=== PATIENT | female | born 1990 | race Caucasian/White ===

== ENCOUNTER → 2018-06-07 16:00 | Outpatient (CLI) | payer OTHER, SELFPAY ==
[2016-06-14 07:00] VITALS: BMI 35.6
[2018-06-13 18:26] LABS: HPV HC, High Risk Negative (Negative)
[2018-06-13 18:42] LABS: HPV Reflexed? YES, CHARGE PATIENT
--- OUTSIDE RECORDS SUMMARY | 2018-07-24 13:42 | XMS RPT_ITS ---
:1990 Author Organization OHIP Care Team Providers Name Role Phone Usha Law Attending Unavailable Usha Law Referring Unavailable PROBLEMS PROBLEMS DATE TYPE CONDITION / CODE ATTENDING STATUS SOURCE 06/07/2018 Unknown Z12.4 - Usha Law Active Lillian Encounter for Community screening for Hospital malignant Repository neoplasm of cervix / Z12.4(ICD-10) PROCEDURES PROCEDURES No Procedure Records FoundRESULTS RESULTS PAP I-G W/RFX HRHPV Collected: 06/07/2018 Status: F Source: LILLIAN 11:30 AM [facility] REPOSITORY Order Comment: CYTOLOGY INFORMATION: - CLINICAL INFORMATION: - DATE LMP/MENOPAUSE: 05/13/18 - COLLECTION VIAL: Thin Prep Vial - SUGAR GRINDER SOURCE: CERVICAL/ENDOCERVICAL - COLLECTION TECHNIQUE: BRUSH/SPATULA Specimen Comment: [id number] Specimen Comment: Source.............Cervix;Endocervix Specimen Comment: No. of containers..01 ThinPrep Vial TYPE CODE TESTS RESULT OUT OF REFERENCE UNITS RANGE LAB L7400.0800 . High DIAGN Comment Result Comment: EPITHELIAL CELL ABNORMALITY. ATYPICAL SQUAMOUS CELLS OF UNDETERMINED SIGNIFICANCE. FUNGAL ORGANISMS MORPHOLOGICALLY CONSISTENT WITH MOSES SPECIES ARE PRESENT. LAB L7400.0900 . Normal ADEQ Comment Result Comment: Satisfactory for evaluation. Endocervical and/or squamous metaplastic cells (endocervical component) are present. LAB L7400.1400 . Normal PERFORM Comment Result Comment: Jessi Perera Hotel Maintenance Technician LAB L7400.1700 . Normal SIGN Comment Result Comment: Mariajose Christianson MD, Pathologist LAB L7400.1720 . Normal Path prov. Comment ICD9 Result Comment: R87.610, R87.5 LAB L7400.2575 . Normal TEST METHOD Comment Result Comment: This liquid based ThinPrep(R) pap test was screened with the use of an image guided system. LAB L7400.2600 . Normal . COMM LAB L7400.2700 . Normal PAPSMR Comment Result Comment: The Pap smear is a screening test designed to aid in the detection of premalignant and malignant conditions of the uterine cervix. It is not a diagnostic procedure and should not be used as the sole means of detecting cervical cancer. Both false-positive and false-negative reports do occur. LAB L7400.2800 . Normal HPV RFLX Comment Result Comment: See below for HPV testing results. LAB L7400.2900 Negative Normal HPV Negative HC,HGH RISK Result Comment: This high-risk HPV test detects thirteen high-risk types (16/18/31/33/35/39/45/51/52/56/58/59/68) without differentiation. Performed at: [facility] [id number] Exchange Underwriting Consultant: Daniella Buchanan MD, Phone: [phone] Performed at: =[facility] [id number] Exchange Underwriting Consultant: Daniella Buchanan MD, Phone: [phone] Performed By: #### L7400.0350 #### [facility] (refer to report for specific site) refer to report for address and phone number ALLERGIES ALLERGIES DATE TYPE / CODE NAME / CODE REACTION SEVERITY SOURCE 06/14/2016 Drug tetracycline Other Unknown [facility] Allergy/4160 /[id number]( [facility] [address](SNOMED RXNORM) Repository CT) ENCOUNTERS ENCOUNTERS ADMIT/DISCHARGE ACCOUNT ADMITTING ENCOUNTER LOCATION SOURCE NUMBER CLASS 06/07/2018 [id number] Ambulatory Blanca Blanca 3 [facility] ing:LABSPEC Repository PAYERS PAYERS ENCOUNTER GUARANTOR PAYER SUBSCRIBER SOURCE 06/07/2018 JONE Primary SEVERINO Blanca [id number] Insurance:MEDICAL HENSELDOB: [facility] [id number]: Repository [id number]: [phone] [phone] () Date:1083-20-40VM [address] [place] [address] [place] [id number]: 06/07/2018 Secondary NOT GIVENUNK Lillian Insurance:SELF PAY [facility] Number: Effective Repository Date:2018-06-07
== END ==
PROVIDERS: Referring Provider Obstetrics & Gynecology; Visit Provider Obstetrics & Gynecology
DX: Z12.4 Encounter for screening for malignant neoplasm of cervix (principal)
CPT/HCPCS: 87624; 88175; G0145

== ENCOUNTER → 2019-01-22 | Outpatient (CLI) | payer OTHER, SELFPAY ==
[2019-01-22 19:34] LABS: Chlamydia Trachomatis by PCR Negative (Negative); Neisserai gonorrhoeae by PCR Negative (Negative); Probe Check PASS; Sample Adequacy Control PASS; Specimen Processing Control PASS
== END | disposition home or self-care (01) ==
PROVIDERS: Referring Provider Obstetrics & Gynecology; Visit Provider Obstetrics & Gynecology
DX: Z34.81 Encounter for supervision of other normal pregnancy, first trimester (principal)
CPT/HCPCS: 87491; 87591

== ENCOUNTER → 2019-02-01 13:40 | Outpatient (CLI) | payer OTHER, SELFPAY ==
[2019-02-01 14:14] LABS: Absolute Neutrophil Count 9.6 X10^3/uL (2.0-7.7); Basophil# 0.05 X10^3/uL; Basophil% 0.4 % (0-1); Eosinophils% 1.7 % (0-5); Hematocrit 40.6 % (37-47); Hemoglobin 13.5 g/dL (12.0-15.0); Lymphocyte % 7.8 % (19-41); Mean Corp Hgb Conc 33.3 g/dL (32-36); Mean Corpuscular Hgb 31.5 pg (27.0-32.0); Mean Corpuscular Volume 94.9 fL (81-99); Mean Platelet Vol. 11.9 fl (6.2-12.0); Monocyte% 6.1 % (0-10); NRBC Flagged by Analyzer 0 % (0-5); Neutrophil # 9.63 X10^3/uL (2.7-7.7); Neutrophil % 83.7 % (47-70); Platelet Count 226 K/mm3 (150-450); RBC Distribution Width CV 11.9 % (11.6-14.6); RBC Distribution Width SD 41.6 fl (35.1-43.9); Red Blood Count 4.28 M/mm3 (4.2-5.4); White Blood Count 11.5 K/mm3 (4.4-11.0)
[2019-02-01 14:17] LABS: Color, Urine Yellow (Yellow); Glucose, Dipstick Normal (Normal); Ketone-Dipstick Negative (Negative); Leukocyte Esterase-Dipstick 500 /ul (Negative); Nitrite-Dipstick Negative (Negative); Occult Blood-Urine Negative /ul (Negative); Protein-Dipstick 15 mg/dl (Negative); Urine Bilirubin Dipstick Negative (Negative); Urine Clarity Cloudy (Clear); Urine Urobilinogen Normal (Normal)
[2019-02-01 14:24] LABS: Amphetamine Urine VISTA NEGATIVE (<1000 ng/mL); Barbiturate Urine VISTA NEGATIVE (< 200 ng/mL); Benzodiazepine Urine VISTA NEGATIVE (< 200 ng/mL); Cocaine Urine VISTA NEGATIVE (< 300 ng/mL); Ecstacy Urine VISTA NEGATIVE (< 500 ng/mL); Methadone Urine VISTA NEGATIVE (< 300 ng/mL); PCP Urine VISTA NEGATIVE (< 25 ng/mL); THC Urine VISTA NEGATIVE (< 50 ng/mL); Vista UDS pH Range 6
[2019-02-01 14:32] LABS: Thyroid Stim Hormone (TSH) 0.95 uIU/mL (0.358-3.74)
[2019-02-04 11:07] LABS: HIV - WCH Non-Reactive (Nonreactive); Hepatitis B Surface Antigen Non-Reactive (Nonreactive); Hepatitis C Antibody Non-Reactive (Nonreactive)
[2019-02-08 01:38] LABS: Prenatal RPR NONREACTIVE (NONREACTIVE)
== END ==
LOC: LABSPEC 13:52
PROVIDERS: Visit Provider Obstetrics & Gynecology
DX: Z34.81 Encounter for supervision of other normal pregnancy, first trimester (principal)
CPT/HCPCS: 80307; 81002; 84443; 85025; 86703; 86762; 86803; 87340

== ENCOUNTER → 2019-05-30 10:20 | Outpatient (CLI) | payer OTHER, SELFPAY ==
[2016-06-14 07:00] VITALS: BMI 35.6
[2019-05-30 11:03] LABS: Hematocrit 37.1 % (37-47); Hemoglobin 12.5 g/dL (12.0-15.0); Mean Corp Hgb Conc 33.7 g/dL (32-36); Mean Corpuscular Hgb 31.5 pg (27.0-32.0); Mean Corpuscular Volume 93.5 fL (81-99); Mean Platelet Vol. 11.3 fl (6.2-12.0); Platelet Count 233 K/mm3 (150-450); RBC Distribution Width SD 41.2 fl (35.1-43.9); Red Blood Count 3.97 M/mm3 (4.2-5.4); White Blood Count 11.7 K/mm3 (4.4-11.0)
[2019-05-30 11:12] LABS: Glucose Challenge Gest 1H 50g 100 mg/dL (70-140)
== END ==
PROVIDERS: Visit Provider Obstetrics & Gynecology
DX: Z34.82 Encounter for supervision of other normal pregnancy, second trimester (principal)
CPT/HCPCS: 36415; 82950; 85027

== ENCOUNTER → 2019-07-09 11:28 | Outpatient (CLI) | payer OTHER, SELFPAY ==
[2019-07-09 12:20] LABS: Hematocrit 35.4 % (37-47); Hemoglobin 11.7 g/dL (12.0-15.0); Mean Corp Hgb Conc 33.1 g/dL (32-36); Mean Corpuscular Hgb 29.9 pg (27.0-32.0); Mean Corpuscular Volume 90.5 fL (81-99); Mean Platelet Vol. 11.6 fl (6.2-12.0); Platelet Count 217 K/mm3 (150-450); RBC Distribution Width CV 12.4 % (11.6-14.6); RBC Distribution Width SD 40.3 fl (35.1-43.9); Red Blood Count 3.91 M/mm3 (4.2-5.4); White Blood Count 11.3 K/mm3 (4.4-11.0)
[2019-07-09 12:25] LABS: Prothrombin Time (Protime)PT. 12.6 SECONDS (11.7-14.9)
[2019-07-09 12:26] LABS: Partial Thromboplast Time 30.8 Seconds (24.1-36.2)
[2019-07-09 12:38] LABS: AST(SGOT) 11 U/L (15-37); Alanine Aminotransfer ALT/SGPT 13 U/L (13-56); Creatinine, Serum 0.56 mg/dL (0.55-1.02); EST Glomerular Filtration Rate 137 mL/min (>60); Est Glom Filt Rate - Afr Amer 166 mL/min (>60); Uric Acid 3.7 mg/dL (2.6-6.0)
== END ==
PROVIDERS: Visit Provider Advanced Practice Midwife
DX: O13.3 Gestational [pregnancy-induced] hypertension without significant proteinuria, third trimester (principal); O10.413 Pre-existing secondary hypertension complicating pregnancy, third trimester
CPT/HCPCS: 36415; 82565; 84450; 84460; 84550; 85027; 85610; 85730

== ENCOUNTER → 2019-07-10 13:39 | Outpatient (CLI) | payer OTHER, SELFPAY ==
[2016-06-14 07:00] VITALS: BMI 35.6
[2019-07-10 14:20] LABS: 24 Hour Urine Protein 306.6 mg/24HR (<150 MG/24HR); 24HR. UA Prot. Total Volume 1825 mL; Urine Protein (24 Hour) 16.8 mg/dL (<11.9)
== END ==
PROVIDERS: Visit Provider Advanced Practice Midwife
DX: O13.3 Gestational [pregnancy-induced] hypertension without significant proteinuria, third trimester (principal); O10.413 Pre-existing secondary hypertension complicating pregnancy, third trimester; Z3A.00 Weeks of gestation of pregnancy not specified
CPT/HCPCS: 81050; 84156

== ENCOUNTER 2019-07-14 08:40 | Outpatient (CLI) | payer OTHER, SELFPAY ==
[2019-07-14 09:24] VITALS: BMI 40.4
[2019-07-14 09:40] VITALS: BP 130/89; PULSE 90; RESP 18; TEMP 36.7; O2SAT 98
--- NOTE | 2019-07-14 13:14 | OB.TRI.HP_ITS ---
- Problem List (1) Decreased movement Status: Acute Qualifiers: Fetus number: single or unspecified fetus Trimester: third trimester Qualified Code(s): O36.8130 - Decreased movements, third trimester, not applicable or unspecified History of Present Illness Date of Service: 07/14/19 Was patient seen by the physician?: Yes Reason For Visit: DECREASED MOVEMENT Date of Service: 07/14/19 Final JENNIFER: 08/28/19 Final JENNIFER Source: US <20 weeks Gestational age: 33 Weeks and 4 Days History of Present Illness: Called in reporting decreased movement after midnight last night. Rested all night, tried to push on belly, increased fluids etc. Was able to get a couple of movements, but not anything near his normal. Sent in to triage for NST. Allergies tetracycline Adverse Reaction (Verified 07/14/19 09:48) Rash Review of Systems Constitutional: Denies: Chills, Fever, Weight Change HEENT: Denies: Head Aches, Sinus Congestion, Sinus Drainage Cardiovascular: Denies: Chest Pain, Palpitations Respiratory: Denies: Cough, Shortness of breath at rest, Sputum production Gastrointestinal: Denies: Abdominal Pain, Nausea, Vomiting Genitourinary: Denies: Dysuria Musculoskeletal: Denies: Joint Pain, Joint Tenderness Skin: Denies: Rash, Wounds Neurological: Denies: Numbness, Tingling, Focal weakness Psychiatric: Denies: Anxiety, Depression, Homicidal Ideations, Suicidal Ideations Hematologic/ Lymphatic: Denies: Easy Bruising, Easy Bleeding Physical Exam Vitals: Vital Signs Temp Pulse Resp BP Pulse Ox 98.1 F 90 18 130/89 H 98 07/14/19 09:40 07/14/19 09:40 07/14/19 09:40 07/14/19 09:40 07/14/19 09:40 General: Alert, Oriented x3, No apparent distress HEENT: Atraumatic, Normocephalic. Negative for: Thyromegaly, Lymphadenopathy Cardiovascular: Regular rate, Regular Rhythm Lungs: Clear to auscultation Abdomen: Bowel Sounds Present, Gravid Neurological: Deep Tendon Reflexes 2+/4 and Symmetrical, Neuro grossly intact DIEING OUT MACHINE OPERATOR: Normal external genitalia. Negative for: Vulvar lesions NST - FHR Rate Baby A Baseline: 130 Variability:: Moderate Accelerations:: 15 x 15 Decelerations:: None NST Reactive:: Yes FHR Category:: Category I Uterine Activity:: quiet Impression/Plan A: at 33 weeks gestation here with decreased movement NST Basleine 125-130, + accels 15x15, - decels, moderate variability, reactive Category I movement felt and heard P: Encouraged to go home and rest Educated on kick counts If decreased movements happen again to call in. If happening frequently is agreeable to beginning biweekly NSTs in the offive Discharge home
== END 2019-07-14 09:30 | disposition home or self-care (01) ==
LOC: WPOUT 09:25 → OBT 09:27
PROVIDERS: Visit Provider Obstetrics & Gynecology
DX: O36.8130 Decreased fetal movements, third trimester, not applicable or unspecified (principal); Z3A.33 33 weeks gestation of pregnancy
CPT/HCPCS: 59025; 59050; 99218; G0378

== ENCOUNTER → 2019-08-02 10:03 | Outpatient (CLI) | payer OTHER, SELFPAY ==
[2019-07-14 09:24] VITALS: BMI 40.4
[2019-08-02 11:14] LABS: Hematocrit 36.9 % (37-47); Hemoglobin 12.2 g/dL (12.0-15.0); Mean Corp Hgb Conc 33.1 g/dL (32-36); Mean Corpuscular Hgb 29.7 pg (27.0-32.0); Mean Corpuscular Volume 89.8 fL (81-99); Mean Platelet Vol. 11.9 fl (6.2-12.0); Platelet Count 210 K/mm3 (150-450); RBC Distribution Width CV 13.2 % (11.6-14.6); RBC Distribution Width SD 42.9 fl (35.1-43.9); Red Blood Count 4.11 M/mm3 (4.2-5.4); White Blood Count 11.3 K/mm3 (4.4-11.0)
[2019-08-02 11:33] LABS: International Normalized Ratio 0.9; Prothrombin Time (Protime)PT. 12.3 SECONDS (11.7-14.9)
[2019-08-02 11:37] LABS: AST(SGOT) 17 U/L (15-37); Alanine Aminotransfer ALT/SGPT 19 U/L (13-56); Creatinine, Serum 0.64 mg/dL (0.55-1.02); EST Glomerular Filtration Rate 117 mL/min (>60); Est Glom Filt Rate - Afr Amer 142 mL/min (>60); Uric Acid 4.6 mg/dL (2.6-6.0)
[2019-08-03 17:23] LABS: 24 Hour Urine Protein 178.6 mg/24HR (<150 MG/24HR); 24HR. UA Prot. Total Volume 770 mL; Urine Protein (24 Hour) 23.2 mg/dL (<11.9)
== END ==
PROVIDERS: Visit Provider Advanced Practice Midwife
DX: O13.9 Gestational [pregnancy-induced] hypertension without significant proteinuria, unspecified trimester (principal)
CPT/HCPCS: 36415; 81050; 82565; 84156; 84450; 84460; 84550; 85027; 85610; 85730; 87077; 87081; 87186

== ENCOUNTER 2019-08-02 22:38 | Outpatient (CLI) | payer OTHER, SELFPAY ==
[2019-08-02 23:10] VITALS: BMI 42.5
--- NOTE | 2019-08-03 00:24 | OB.TRI.NOTE ---
History of Present Illness Date of Service: 08/03/19 Was patient seen by the physician?: Yes Reason For Visit: HIGH BLOOD PRESSURE Date of Service: 08/03/19 Final JENNIFER: 08/28/19 Final JENNIFER Source: US <20 weeks Gestational age: 36 Weeks and 3 Days History of Present Illness: 28yo at 36w43d gestation by 10w2d US seen in office today for routine PNV with c/o elevated blood pressures; pressures were mildly elevated, BPP was 8/8 and NST was reactive; labs were WNL w/exception of 24 hour urine which is in progress; she was sent home with recommendations of rest, FM counts, and low stimulation environment, to return in 3 days for NST; this evening she presents to L&D with report of elevated blood pressures at home, the highest of which was 160/109; she denies TEAGUE, visual changes, nausea or epigastric pain; she has a hx of preeclampsia in first and oligohydramnios in second Allergies tetracycline Adverse Reaction (Verified 08/02/19 23:12) Rash Physical Exam General: Alert, Oriented x3, Cooperative, No apparent distress HEENT: PERRLA, EOMI Cardiovascular: Regular rate, Regular Rhythm Lungs: Clear to auscultation, Normal air movement Abdomen: Bowel Sounds Present, Soft, Non Tender, Non-Distended, Passing Flatus, Gravid, Obese Extremities:: No edema Neurological: Cranial nerves II-XII grossly intact, Deep Tendon Reflexes 2+/4 and Symmetrical, Neuro grossly intact Estimated gestational size: Appropriate for gestational size Impression/Plan Impression: 28yo at 36w43d gestation by 10w2d US Elevated blood pressures, asymptomatic Hx of preeclampsia in first , currently on asa Labs WNL Plan: d/w covering collaborative physician Dr. Enio Kumar PC ratio May dc pt home w/rest, FM counts, low stimulation environment if pressures stable and PC ration WNL/reassuring RTO 2 days for NST
[2019-08-03 01:32] LABS: Protein, Urine (Random) 29.7 mg/dL (<11.9); Protein:Creat Ratio 125 mg/g CRE (0-200)
--- NOTE | 2019-08-03 02:25 | OB.TRI.PN ---
Progress Notes Date of Service: 08/03/19 Progress Note: This note is from today at 0130 S: Remains asymptomatic O: AVSS: BPs in 130s/70s-80s FHTs: 130 baseline, mod variability, +accels, no decels UCs: None A: Impression: 28yo at 36w43d gestation by 10w2d US Elevated blood pressures, asymptomatic Hx of preeclampsia in first , currently on asa Labs in office yesterday WNL PC ration today WNL Cat 1 FHTs P: DC home w/rest, FM counts, low stimulation environment Continue 24 hour urine collection RTO 2 days for NST Laboratory Studies: Laboratory Tests 08/03/19 Range/Units 01:05 U Random Total Protein 29.7 H (<11.9) mg/dL Urine Creatinine 237.00 (NO RANGE EST.) mg/dL Protein/Creatinin Ratio 125 (0-200) mg/g CRE
== END 2019-08-03 02:00 | disposition home or self-care (01) ==
LOC: WPOUT 22:47 → WP 22:50
PROVIDERS: Visit Provider Advanced Practice Midwife
DX: O26.893 Other specified pregnancy related conditions, third trimester (principal); R03.0 Elevated blood-pressure reading, without diagnosis of hypertension; Z3A.36 36 weeks gestation of pregnancy
CPT/HCPCS: 59025; 59050; 82570; 84156; 99218; G0378

== ENCOUNTER 2019-08-21 20:53 | Inpatient (IN) | payer OTHER, SELFPAY ==
[2019-08-21 21:18] VITALS: BP 157/96; PULSE 94; O2SAT 97
--- NOTE | 2019-08-21 21:27 | HP.PCM_ITS ---
- Problem List (1) 39 weeks gestation of Status: Acute (2) Hypertension affecting in third trimester Status: Acute History Date of Admission: 08/21/19 Final JENNIFRE: 08/28/19 Final JENNIFER Source: US <20 weeks Gestational age: 39 Weeks and 1 Days History of this : This is a 28 year-old, G [3], P [2], at 39 weeks gestational age. Here for medical induction with gestational hypertension. Allergies tetracycline Adverse Reaction (Verified 08/02/19 23:12) Rash Home Medications: Home Medications Aspirin [Aspirin, Baby] 81 mg PO DAILY@0800 06/14/16 Vit No.130/Iron/Folic [ Tablet] 1 tablet PO DAILY 06/14/16 Valacyclovir HCl [Valtrex] 1,000 mg PO DAILY 06/14/16 Smoking Status: Never smoker Alcohol: None Number of Fetus(es): 1 NST - FHR Rate Baby A Baseline: 170 Variability:: Moderate Accelerations:: 15 x 15 Decelerations:: None NST Reactive:: Yes FHR Category:: Category II Uterine Activity:: quiet History Past Pregnancies: Past Pregnancies Delivery Date Name GA/ Weeks Outcome Route Wt Infant Sex Labor Length Anesthesia Delivery Location Provider FOB 10-02-12 37 viable vag 6.9 male 18H epidural 06-14-16 41 viable vag 7.0 female 8H epidural Labs: Mom's Problem List Problem Status Onset Code 39 weeks gestation of Acute Z3A.39 Hypertension affecting in third trimester Acute O16.3 Mom's Labs & Results 08/21/19 08/21/19 08/21/19 22:20 22:20 22:20 WBC 11.4 H RBC 3.84 L Hgb 11.4 L Hct 34.7 L MCV 90.4 MCH 29.7 MCHC 32.9 RDW Std Deviation 43.9 RDW Coeff of Olvin 13.5 Plt Count 188 MPV 12.1 H Immature Gran % (Auto) 1.600 H Neut % (Auto) 74.8 H Lymph % (Auto) 11.0 L Collingsworth % (Auto) 11.1 H Eos % (Auto) 1.1 Baso % (Auto) 0.4 Absolute Neuts (auto) 8.5 H Absolute Lymphs (auto) 1.25 Nucleated RBC % 0 PT 12.4 INR 1.0 APTT 28.4 Creatinine Estim Creat Clear Calc Est GFR (MDRD) Af Amer Est GFR (MDRD) Non-Af Uric Acid AST ALT U Random Total Protein Urine Creatinine Protein/Creatinin Ratio Blood Type O POSITIVE Antibody Screen NEGATIVE 08/21/19 08/22/19 22:20 01:52 WBC RBC Hgb Hct MCV MCH MCHC RDW Std Deviation RDW Coeff of Olvin Plt Count MPV Immature Gran % (Auto) Neut % (Auto) Lymph % (Auto) Collingsworth % (Auto) Eos % (Auto) Baso % (Auto) Absolute Neuts (auto) Absolute Lymphs (auto) Nucleated RBC % PT INR APTT Creatinine 0.59 Estim Creat Clear Calc 139.28 Est GFR (MDRD) Af Amer 156 Est GFR (MDRD) Non-Af 129 Uric Acid 4.3 AST 23 ALT 25 U Random Total Protein 41.0 H Urine Creatinine 157.00 Protein/Creatinin Ratio 261 H Blood Type Antibody Screen Course Did the patient receive Yes care? Labs Blood Type: O RH: POSITIVE RPR/VDRL/Syphilis Nonreactive Rubella status Immune HbSAg Negative Date Done: 02/01/19 Chlamydia Negative Gonorrhea Negative HIV/AIDS Non-Reactive Group B Strep: Positive Current Obstetrical History Gestational Diabetes No Incompetent Cervix No Infertility No IUGR No Macrosomia No Hypertension/Pre-eclampsia No Placenta Previa/Abruption No PTL/PROM No Uterine anomaly No Oligohydramnios No Polyhydramnios No Multiple gestation No Past Medical History Asthma No Diabetes No Hypertension Yes: was taking meds, off meds for Heart disease No Mitral valve prolapse No Neurologic/Seizure disorder/ No Migraines Kidney disease No Liver disease No Varicosities No Clotting disorders/Hx of DVT No Thyroid Dysfunction No Other medical diseases No Psychiatric disorders Yes: anxiety Major trauma No Abnormal PAP smear No Sleep apnea No Mammogram in the last 2 years No Social History Marital Status: Alleged father Celso Courtney Hx Smoking No Smoking Status Never smoker How long have you used pt denies substances (years)? Expected Delivery Method: Spontaneous Vaginal Describe any other labor & delivery plans:: Medical induction with Cytotec Number of Visits: 16 Review of Systems Constitutional: Denies: Chills, Fever, Weight Change HEENT: Denies: Head Aches, Sinus Congestion, Sinus Drainage Cardiovascular: Denies: Chest Pain, Palpitations Respiratory: Denies: Cough, Shortness of breath at rest, Sputum production Gastrointestinal: Denies: Abdominal Pain, Nausea, Vomiting Genitourinary: Denies: Dysuria Musculoskeletal: Denies: Joint Pain, Joint Tenderness Skin: Denies: Rash, Wounds Neurological: Denies: Numbness, Tingling, Focal weakness Psychiatric: Reports: Anxiety. Denies: Depression, Homicidal Ideations, Suicidal Ideations Hematologic/ Lymphatic: Denies: Easy Bruising, Easy Bleeding Physical Exam Vitals: BP 157/96 on recheck 147/100, all other VSS General: Alert, Oriented x3, No apparent distress HEENT: Atraumatic, Normocephalic. Negative for: Thyromegaly, Lymphadenopathy Cardiovascular: Regular rate, Regular Rhythm Lungs: Clear to auscultation Abdomen: Bowel Sounds Present, Gravid Extremities:: No edema - +2 bilateral LE Neurological: Deep Tendon Reflexes 2+/4 and Symmetrical, Neuro grossly intact INSURANCE AND FINANCIAL SERVICES AGENT: Normal external genitalia. Negative for: Vulvar lesions Estimated gestational size: Appropriate for gestational size Presentation: Cephalic Cervix Dilation (cm): 1.5 Station: -3 Effacement (%): 50 Assessment/Plan All Active Problems Decreased movement (Acute) 39 weeks gestation of (Acute) Hypertension affecting in third trimester (Acute) A: This is a 28 year-old, G [3], P [2], at 39 weeks gestational age. Induction of labor with Cytotec for gestational hypertension vs. pre-e NST reactive, +accels, -decels, baseline 170, Category II tracing SVE 1/50/high BPs elevated 157/96, 147/100, 145/105. States is very anxious P: Start IOL Continuous FHR monitoring Pre-eclampsia labs HTN management orders placed for BP >160/110 Gave support to patient over the phone and relaxation techniques encouraged. Educated on her HR elevating with anxiety, so will babies Ambien for therapeutic rest/relaxation overnight Updated attending MD Dr. Castañeda on POC Expect
[2019-08-21 21:29] VITALS: BP 147/100; PULSE 91
[2019-08-21 21:34] VITALS: BMI 42.5
[2019-08-21 21:39] VITALS: BP 148/105; PULSE 85
[2019-08-21 21:49] VITALS: BP 120/67; PULSE 76
[2019-08-21 22:00] VITALS: BP 143/77; PULSE 86
[2019-08-21 22:05] VITALS: BP 143/77; PULSE 86; TEMP 98.8; O2SAT 97
[2019-08-21] MEDS: miSOPROStol 25 MCG TABLET VAGINAL (22:30)
[2019-08-21 22:33] LABS: Absolute Lymphocyte Count 1.25 X10^3/uL (0.83-4.51); Absolute Neutrophil Count 8.5 X10^3/uL (2.0-7.7); Basophil# 0.05 X10^3/uL; Basophil% 0.4 % (0-1); Eosinophil# 0.12 X10^3/uL; Eosinophils% 1.1 % (0-5); Hematocrit 34.7 % (37-47); Hemoglobin 11.4 g/dL (12.0-15.0); Lymphocyte # 1.25 X10^3/ul (4.0); Mean Corp Hgb Conc 32.9 g/dL (32-36); Mean Corpuscular Hgb 29.7 pg (27.0-32.0); Mean Corpuscular Volume 90.4 fL (81-99); Mean Platelet Vol. 12.1 fl (6.2-12.0); Monocyte# 1.26 X10^3/uL; Monocyte% 11.1 % (0-10); NRBC Flagged by Analyzer 0 % (0-5); Neutrophil # 8.49 X10^3/uL (2.7-7.7); Neutrophil % 74.8 % (47-70); Platelet Count 188 K/mm3 (150-450); RBC Distribution Width CV 13.5 % (11.6-14.6); RBC Distribution Width SD 43.9 fl (35.1-43.9); Red Blood Count 3.84 M/mm3 (4.2-5.4); White Blood Count 11.4 K/mm3 (4.4-11.0)
[2019-08-21 22:54] LABS: Prothrombin Time (Protime)PT. 12.4 SECONDS (11.7-14.9)
[2019-08-21 22:55] LABS: AST(SGOT) 23 U/L (15-37); Alanine Aminotransfer ALT/SGPT 25 U/L (13-56); Creatinine, Serum 0.59 mg/dL (0.55-1.02); EST Glomerular Filtration Rate 129 mL/min (>60); Est Glom Filt Rate - Afr Amer 156 mL/min (>60); Estimated Creatinine Clearance 139.28 ml/min; Partial Thromboplast Time 28.4 Seconds (24.1-36.2); Uric Acid 4.3 mg/dL (2.6-6.0)
[2019-08-22] VITALS (44 sets, daily range): BP systolic 108–169; BP diastolic 50–121; PULSE 76–120; RESP 16–18; TEMP 37.3–37.9; O2SAT 92–99
[2019-08-22] MEDS: Zolpidem Tartrate 5 MG Tablet PO (00:22)
[2019-08-22 02:27] LABS: Protein:Creat Ratio 261 mg/g CRE (0-200)
[2019-08-22] MEDS: Lactated Ringers 1,000 ML 50 ML IV (02:50)
[2019-08-22] MEDS: Lactated Ringers 500 ML 999 ML IV (02:51)
[2019-08-22] MEDS: miSOPROStol 25 MCG TABLET VAGINAL ×2 (03:34→07:43)
--- NOTE | 2019-08-22 08:35 | PCM.PN.BLA ---
Progress Note S: Feeling well with little sleep last night, but no pain Denies headache, blurred vision and RUQ pain O: SVE ft/75/high soft posterior UC irritability VSS with BP 145/96 A: Here at 39w1d for IOL for pre-e NST reactive Category I Two doses of Cytotec given overnight P: Dose of Cytotec given per CNM vaginally with SVE To start Pitocin per shared decision making at 1200 Plans epidural when uncomfortable Will AROM when 3-4cm To re-evaluate SVE in 4 hours Continuous monitoring Expect
[2019-08-22] MEDS: fentaNYL-bupivacaine (epidural) 100 ML BAG EPIDURAL (12:20)
[2019-08-22] MEDS: Oxytocin 30 units/NS 500 ml 30 UNITS/500 ML IV.SOLN 999 UNITS IV (13:16)
--- NOTE | 2019-08-22 13:16 | PCM.OPRPT ---
Problem List (1) 39 weeks gestation of Status: Acute (2) Hypertension affecting in third trimester Status: Acute Vaginal Delivery Maternal Presentation: Medically Indicated Induction medical induction of labor with Cytotec for gestational hypertension Method of Induction: Cytotec Medical Reason for Induction: Gestational Hypertension Amniotic Membrane Rupture Type: Spontaneous - with pushing Amniotic Fluid Description: Clear Final JENNIFER: 08/28/19 Gestational age: 39 Weeks and 1 Days Date of Procedure: 08/22/19 Pre-Operative Diagnosis: IOL Post-Operative Diagnosis: S/P Surgery/ Procedure Performed: Spontaneous Vaginal Delivery Type of Anesthesia: Epidural, Local with 1% lidocaine Description of Procedure: Patient was FD/+3 station with epidural not in effect yet and pushed to deliver a viable male in OA to NICKERSON at 1316. Immediately followed by placenta in Hdez mechanism. Dr. Castañeda paged to room. The infant was placed on the maternal abdomen and further attended by nursery personnel with bulb suction and stimulation. The cord was immediately doubly clamped by CNM and cut. Infant was taken by nursery personnel to warmer for further evaluation. Pitocin started wide open. Due to bleeding, intrauterine exam with retrieval of small clots done x2. IM Methergine given. Fundus firmed and good hemostasis. Dr. Castañeda entered room. On inspection placenta was intact with two focal areas of possible infarction, but intact with a 3 vessel cord. Placenta sent to pathology for complete evaluation. The fundus firmed and good hemostasis. EBL 400. First degree right periurethral repair by Dr. Castañeda with a 3.0 double rapide and 1% Lidocaine. apgars 8/9. Presentation: Vertex, FANTASMA Placental Delivery Description: Spontaneous Placenta Disposition: Sent to Pathology Percentage of Placenta Abruption: 99 - complete 100% Cord Vessel Description: 3 Vessels Cord Entanglement: None Estimated Blood Loss: 400 Infant A gender: Male (1 minute): 8 (5 minute): 9 Laceration: Periurethral Extnsion/lac, 1st degree Medications given after delivery: IV Pitocin, IM Methergin
--- NOTE | 2019-08-22 13:16 | PLAC_PTH ---
PATIENT: JONE SAMAYOA LOC: WP U#:[id number] AGE/SX: 28/F ROOM: WP008 RE08/21/[address]: Justina Hale CNM : 1990 BED: 1 DIS: 08/23/2019 SPEC #: [id number] RECD: 08/22/19 15:00 STATUS: REGAN ERIC #: [id number] DODIE: 08/22/19 13:[address]: Justina Hale DEPT: SURGICAL PATHOLOGY RECD BY: John Cartwright Tissues: Placenta, NOS Procedures: Surgery Specimen Level V HEADER OPERATION: Vaginal delivery PRE-OP DIAGNOSIS: Labor and delivery TISSUE SUBMITTED: Placenta MICROSCOPIC DIAGNOSIS Placenta: Placental disc - third trimester placenta (483 gm). Membranes - no pathologic diagnosis. Umbilical cord - three blood vessels and no pathologic diagnosis. SJ:augusto 08/26/19 MICROSCOPIC DESCRIPTION Slides are reviewed. GROSS DESCRIPTION SPECIMEN: PLACENTA / CLINICAL INFORMATION: A. Weight: 3.221 kg B. Gestational Age: 39 weeks C. Sex: Male PLACENTAL WEIGHT (POST FIXATION): 483 gm PLACENTAL DIMENSIONS: 16 x 15 x 3.5 cm PLACENTAL SHAPE: Usual ovoid PLACENTAL WEIGHT FOR GESTATIONAL AGE: Within 10-99th percentile MEMBRANES - Present A. Insertion: Marginal B. Site of rupture from edge: 8 cm from edge of placental disc C. Color of membrane: Ruiz-chris D. Abnormalities: None UMBILICAL CORD - Present A. Color: Ruiz-chris B. Insertion: Paracentral C. Length: 53 cm D. Diameter: 1.2 cm E. Number of vessels: Three F. Abnormalities: None PLACENTAL DISC - Present A. Color of surface: Ruiz-chris B. surface abnormalities: None C. Maternal cotyledons: Intact with minimal tears D. Attached retro placental clot: No clot E. Cut surface: Dark red and spongy F. Lesions: None G. Separate clot: Absent SECTIONS SUBMITTED: 1. Membrane roll 2. Cord, maternal end 3. Cord, end 4. Placental disc, and maternal surfaces 5. Placental disc, and maternal surfaces 6. Placental disc, and maternal surfaces SJ:augusto 08/23/19 TC:4 CPT: 60567
[2019-08-22] MEDS: Methylergonovine 0.2 MG/ML Ampul IM (13:21)
[2019-08-22] MEDS: Cefazolin 1 GM/50 ML BAG IV (15:52)
[2019-08-22] MEDS: Ibuprofen 600 MG Tablet PO (16:04)
[2019-08-22 16:07] LABS: Hematocrit 37.3 % (37-47); Mean Corp Hgb Conc 32.2 g/dL (32-36); Mean Corpuscular Hgb 28.8 pg (27.0-32.0); Mean Corpuscular Volume 89.4 fL (81-99); Platelet Count 228 K/mm3 (150-450); RBC Distribution Width CV 13.4 % (11.6-14.6); RBC Distribution Width SD 43.6 fl (35.1-43.9); Red Blood Count 4.17 M/mm3 (4.2-5.4); White Blood Count 19.2 K/mm3 (4.4-11.0)
[2019-08-22] MEDS: Acetaminophen 500 MG Tablet 1000 MG PO (18:13)
--- NOTE | 2019-08-22 19:56 | DCINST_ITS ---
Discharge Diet: No Restrictions - add plenty of iron rich foods Discharge Activity: Return to Normal Activity, May not drive while taking narcotic pain medications., May Shower May resume sexual activity in: 4-6 weeks Additional Activity Instructions:: Nothing in the vagina for 4-6 weeks. You may return to work/school in 6 weeks. Call your doctor if your incision/area has: Continuous Slow Oozing, Sudden Increased Bleeding, Increased Pain/ Swelling, Increased Redness, Foul Smelling Discharge Additional Instructions: If you experience any of the following, contact your healthcare provider. * Bleeding that soaks a pad every hour for 2 hours * Fever 100.4 or higher * Unrelieved incision or abdominal pain * Swelling, redness, discharge or bleeding from your incision or episiotomy site * Your incision begins to separate * Problems urinating (including inability to urinate or burning while urinating). * Visual changes * Severe headache * Flu-like symptoms * Pain or redness in one of both of your breasts * Pain, warmth, tenderness or swelling in your legs, especially the calf area * Frequent nausea and vomiting * Symptoms of depression or anxiety If you experience any of the following, call 911 or go to the nearest Emergency Room. * Chest pain * Problems breathing * Seizure activity * Partial or complete paralysis of a body part, slurred speech, weakness or drooping of the face, or a sudden inability to walk or hold your balance Allergies/Adverse Reactions: Allergies tetracycline Adverse Reaction (Verified 08/21/19 21:32) Rash Medications to take at Discharge Aspirin [Aspirin, Baby] 81 mg PO DAILY@0800 06/14/16 Vit No.130/Iron/Folic [ Tablet] 1 tablet PO DAILY 06/14/16 Valacyclovir HCl [Valtrex] 1,000 mg PO DAILY 06/14/16 Please Follow Up With: Justina Hale CNM When: Follow up in 2 weeks for BP check in office. Test Results: Test results from this visit will be discussed in further detail at your follow- up appointment, if applicable.
[2019-08-23 00:49] VITALS: BP 122/79; PULSE 90; RESP 16; TEMP 37.1
--- NOTE | 2019-08-23 01:18 | NURSING ---
300cc is pts second void first void was in shower at recomendation of Dr. Castañeda.
[2019-08-23] MEDS: 0.9% Saline Lock 10 ML Syringe IV (04:00)
[2019-08-23 04:07] VITALS: BP 125/74; PULSE 81; RESP 16; TEMP 36.6
--- NOTE | 2019-08-23 05:30 | NURSING ---
lab called to draw cbc this am as pt is a difficult lab draw.
[2019-08-23 07:19] LABS: Hemoglobin 10.2 g/dL (12.0-15.0); Mean Corp Hgb Conc 31.9 g/dL (32-36); Mean Corpuscular Hgb 28.8 pg (27.0-32.0); Mean Corpuscular Volume 90.4 fL (81-99); Mean Platelet Vol. 11.8 fl (6.2-12.0); Platelet Count 185 K/mm3 (150-450); RBC Distribution Width CV 13.7 % (11.6-14.6); RBC Distribution Width SD 44.7 fl (35.1-43.9); Red Blood Count 3.54 M/mm3 (4.2-5.4); White Blood Count 12.3 K/mm3 (4.4-11.0)
--- NOTE | 2019-08-23 08:41 | PCM.PN.BLA ---
Progress Note S: Feeling well with some vaginal pain, is more sore than anything. Using Tylenol, Ibuprofen and ice. O: VSS. BP 125/74. Fundus u/1, firm, midline Lochia rubra moderate Normal involution A: Post vaginal delivery day 1 Blood loss of 592mL at per cEBL calculator. Hg 10.2 Bottle feeding male Normal course P: Discharge home today after 24 hours To follow up in 2 weeks for BP check Education on care of self, baby, understanding PPD and increasing iron rich foods
[2019-08-23] MEDS: Acetaminophen 500 MG Tablet 1000 MG PO (09:40)
[2019-08-23 12:30] VITALS: BP 118/56; PULSE 82; RESP 18; TEMP 36.7
[2019-08-23] MEDS: Ibuprofen 600 MG Tablet PO (15:04)
[2019-08-23 19:36] VITALS: BP 154/88; PULSE 99; RESP 18; TEMP 36.8
[2019-08-23 19:41] VITALS: BP 137/86; PULSE 90
--- NOTE | 2019-08-23 19:55 | NURSING ---
1941- pt was up ambulating moving bags in room prior to previous bp check. pt was relaxed back in bed semifowlers rt tilt when this bp taken. will notify susy scales regarding pt and check if ok for discharge still.
--- NOTE | 2019-08-23 20:15 | NURSING ---
1945-annie jarrell cnm regarding pt bp's. ok for discharge still, however pt to follow up in the office in 1 week for bp check. pt already aware of s/sx of preeclampsia.
[2019-08-27 10:46] LABS: Pathology Specimen OB SEE PATHOLOGY REPORT
== END 2019-08-23 20:25 | disposition home or self-care (01) | DRG 807 ==
PROVIDERS: Admitting Provider Obstetrics & Gynecology; Visit Provider Obstetrics & Gynecology
DX: O13.4 Gestational [pregnancy-induced] hypertension without significant proteinuria, complicating childbirth (principal); Z37.0 Single live birth; Z3A.39 39 weeks gestation of pregnancy; F41.9 Anxiety disorder, unspecified; O99.344 Other mental disorders complicating childbirth; O70.0 First degree perineal laceration during delivery
CPT/HCPCS: 36415; 59025; 59050; 82565; 82570; 84156; 84450; 84460; 84550; 85025; 85027; 85610; 85730; 86850; 86900; 86901; 88307; 99218; J7120; A4216; G0378

== ENCOUNTER 2019-08-26 21:22 | Inpatient (IN) | payer OTHER, SELFPAY ==
[2019-08-26] VITALS (20 sets, daily range): BP systolic 145–167; BP diastolic 84–111; PULSE 92–109; RESP 18; TEMP 37.7; O2SAT 91–99; BMI 43.4
--- NOTE | 2019-08-26 21:54 | OB.TRI.NOTE ---
- Problem List (1) hypertension Status: Acute History of Present Illness Date of Service: 08/26/19 Was patient seen by the physician?: Yes Reason For Visit: R/O PRE ECLAMPSIA Date of Service: 08/26/19 Final JENNIFER: 08/22/19 Final JENNIFER Source: US <20 weeks Gestational age: Delivered History of Present Illness: S/P 08/22/19 of a viable male after IOL for gestational hypertension. Upon discharge BPs stable 130s/80s and asymptomatic. Today called in with BP 161/101 at home. Reports a headache that is not relieved with Tylenol. Denies blurred vision or RUQ pain. Allergies tetracycline Allergy (Mild, Verified 08/26/19 21:36) Rash Review of Systems Constitutional: Denies: Chills, Fever, Weight Change HEENT: Reports: Head Aches. Denies: Sinus Congestion, Sinus Drainage Cardiovascular: Denies: Chest Pain, Palpitations Respiratory: Denies: Cough, Shortness of breath at rest, Sputum production Gastrointestinal: Reports: Abdominal Pain - post delivery cramping. Denies: Nausea, Vomiting Genitourinary: Denies: Dysuria Gynecological: Reports: Vaginal bleeding - lochia rubra Musculoskeletal: Denies: Joint Pain, Joint Tenderness Skin: Denies: Rash, Wounds Neurological: Denies: Numbness, Tingling, Focal weakness Psychiatric: Denies: Anxiety, Depression, Homicidal Ideations, Suicidal Ideations Hematologic/ Lymphatic: Denies: Easy Bruising, Easy Bleeding Physical Exam Vitals: On admission BP 167/104 on left arm, sitting resting. Other VSS General: Alert, Oriented x3, No apparent distress HEENT: Atraumatic, Normocephalic. Negative for: Thyromegaly, Lymphadenopathy Cardiovascular: Regular rate, Regular Rhythm Lungs: Clear to auscultation Abdomen: Bowel Sounds Present, Gravid Neurological: Deep Tendon Reflexes 2+/4 and Symmetrical, Neuro grossly intact BRACELET FORMER: Normal external genitalia. Negative for: Vulvar lesions Impression/Plan A: 4 days S/P Elevated home blood pressure with headache not relived with Tylenol BP on admission 167/104. Head to toe negative P: Pre-e labs/urine Oral and IV hypertensive protocols initiated awaiting lab results Discussed case with attending Dr. Castañeda Admit observation overnight for serial BPs and stabilization
[2019-08-26] MEDS: 0.9% Saline Lock 10 ML Syringe IV ×2 (22:02→23:32)
[2019-08-26 22:25] LABS: Hematocrit 30.4 % (37-47); Hemoglobin 9.6 g/dL (12.0-15.0); Mean Corp Hgb Conc 31.6 g/dL (32-36); Mean Corpuscular Hgb 29.1 pg (27.0-32.0); Mean Corpuscular Volume 92.1 fL (81-99); Mean Platelet Vol. 11.9 fl (6.2-12.0); Platelet Count 203 K/mm3 (150-450); RBC Distribution Width SD 46.6 fl (35.1-43.9); White Blood Count 10.3 K/mm3 (4.4-11.0)
[2019-08-26 22:41] LABS: Protein, Urine (Random) 119.4 mg/dL (<11.9); Protein:Creat Ratio 835 mg/g CRE (0-200)
[2019-08-26 22:42] LABS: AST(SGOT) 32 U/L (15-37); Alanine Aminotransfer ALT/SGPT 37 U/L (13-56); Creatinine, Serum 0.67 mg/dL (0.55-1.02); EST Glomerular Filtration Rate 112 mL/min (>60); Est Glom Filt Rate - Afr Amer 136 mL/min (>60); Estimated Creatinine Clearance 118.07 ml/min; Uric Acid 4.7 mg/dL (2.6-6.0)
--- NOTE | 2019-08-26 22:55 | PCM.PN.BLA ---
Progress Note S: Persistent headache /10, dull achy. O: Denies blurred vision or RUQ pain. BPs remain elevated 153/98, 150/103 Labs as follows: Laboratory Results - last 24 hr 08/26/19 08/26/19 08/26/19 21:30 22:02 22:02 WBC 10.3 RBC 3.30 L Hgb 9.6 L Hct 30.4 L MCV 92.1 MCH 29.1 MCHC 31.6 L RDW Std Deviation 46.6 H RDW Coeff of Olvin 14.0 Plt Count 203 MPV 11.9 PT Cancelled INR Cancelled APTT Cancelled Creatinine Estim Creat Clear Calc Est GFR (MDRD) Af Amer Est GFR (MDRD) Non-Af Uric Acid AST ALT U Random Total Protein 119.4 H Urine Creatinine 143.00 Protein/Creatinin Ratio 835 H 08/26/19 22:02 WBC RBC Hgb Hct MCV MCH MCHC RDW Std Deviation RDW Coeff of Olvin Plt Count MPV PT INR APTT Creatinine 0.67 Estim Creat Clear Calc 118.07 Est GFR (MDRD) Af Amer 136 Est GFR (MDRD) Non-Af 112 Uric Acid 4.7 AST 32 ALT 37 U Random Total Protein Urine Creatinine Protein/Creatinin Ratio A: Pre-eclampsia with severe features Per hypertensive protocol parameters not met for anti-hypertensive medication yet P: One time dose of Procardia XL 30mg Will call attending Dr. Castañeda about plan of care with possible IV Magnesium
[2019-08-26] MEDS: NIFEdipine 30 MG Tablet PO (23:03)
--- NOTE | 2019-08-26 23:23 | PCM.PN.BLA ---
Progress Note S: Headache continues, still a 4/10, but otherwise feeling okay. O: BP now 159/111 A: Pre-eclampsia with severe features P: Will start Magnesium Sulfate 4gm bolus followed by a 2gm/hr maintenance dosage Strict I/O to be recorded May be up for bathroom privileges only with RN assist 100mL/hr restriction IV Labetalol prn dosing to be followed Will collaborate with attending Dr. Castañeda
[2019-08-26 23:26] LABS: Partial Thromboplast Time 30.6 Seconds (24.1-36.2); Prothrombin Time (Protime)PT. 12.9 SECONDS (11.7-14.9)
[2019-08-26] MEDS: Lactated Ringers 1,000 ML 50 ML IV (23:33)
[2019-08-26] MEDS: Magnesium Sulfate 4gm/100mL 4 GM/100 ML IV.SOLN. IV (23:36)
[2019-08-27] VITALS (241 sets, daily range): BP systolic 120–160; BP diastolic 70–107; PULSE 87–117; RESP 16–20; TEMP 36.1–37.7; O2SAT 89–100
--- NOTE | 2019-08-27 | NURSING ---
MAG check: bp: 156/97, hr-104, respirations- 18, pulse ox 100%, pt tolerating well, alert and flushed. 50ml of mag in. reflexes +1, no clonus, still has headache. lung sounds clear BL.
[2019-08-27] MEDS: 0.9% Saline Lock 10 ML Syringe IV ×2 (00:08→14:47)
[2019-08-27] MEDS: Magnesium Sulfate 20 GM/500 ML BAG IV ×2 (00:15→07:37)
--- NOTE | 2019-08-27 01:02 | NURSING ---
Report given to this RN by Malvin Mazariegos RN.
--- NOTE | 2019-08-27 01:40 | NURSING ---
called Justina Hale regarding our HTN protocol. updated her pt received procardia XL 30mg at 2300, then she had a bp of 162/95 so first line IV labetolol 20mg ivp was discussed with charge nurse Declan Smith and decided to start the protocol.After receiving the IV labetolol dose, maintenance bp was reached. discussed our HTN protocol to then start a maintenance dose of labetolol since the first line was started and read the option to her. she denies starting the second linen worker PO labetolol at this time. she states to give pt iv labetolol 20mg ivp if the pts bp goes up past 160/110. also received order for tylenol 1000mg x1 po for headache and ok for scds.
[2019-08-27] MEDS: Acetaminophen 500 MG Tablet 1000 MG PO ×2 (02:11→12:06)
--- NOTE | 2019-08-27 02:18 | NURSING ---
SCD's applied to pt. legs bilaterally.
--- NOTE | 2019-08-27 06:39 | NURSING ---
Small cup of water and basin provided for pt. to rinse mouth and spit water back out d/t complaint of severely dry mouth. Pt. instructed not to drink the water as she is still NPO. Nurse remained in room as pt. rinsed her mouth.
--- NOTE | 2019-08-27 07:48 | PCM.PN.BLA ---
Progress Note S: Headache is still a 5/10. Nasal pressure and wanting Flonase O: BP 139/82 0725 BP 137/91 0624 Denies blurred vision, RUQ pain, - Clonus, +2DTRS A: On Magnesium Sulfate 2gm maintenance protocol Received IV Labetalol overnight BPs remain stable Headache remains Sinus pressure P: May start ice chips Tylenol 1000mg Q8H PRN Flonase [address] Castañeda updated and will round on patient this AM to start oral hypertensive medication for maintenance Discussed POC with patient and understands STROKE Vital Signs/Narrative: Vital Signs Temp Pulse Resp BP Pulse Ox 08/27/19 06:24 97.8 F 92 18 137/91 H 96 08/27/19 05:22 98.5 F 101 H 19 H 133/84 H 97 08/27/19 04:21 98.0 F 112 H 18 131/73 H 96
[2019-08-27] MEDS: Fluticasone 0.05% 1 SPRAY NASAL.SRY 2 SPRAY NASAL (08:34)
--- NOTE | 2019-08-27 08:56 | NURSING ---
clarified trandate order with Justina, and pharmacy. will give 100mg po BID
[2019-08-27] MEDS: Labetalol 100 MG Tablet PO (09:02)
--- NOTE | 2019-08-27 15:00 | NURSING ---
late entry- 1435- notified Justina of latest BP's to verify still ok for mag sulfate d/c. Ok given for d/c.
--- NOTE | 2019-08-27 15:48 | NURSING ---
Addendum entered by Nanette Mcfarland 08/27/19 15:50: Patient denies S&S of increased BP Original Note: 1540- called to Justina in office. notfied of BP-159/97 and recheck 5mins later 158/97. Order for Procardia po given
[2019-08-27] MEDS: NIFEdipine 30 MG Tablet PO ×2 (16:21→21:14)
--- NOTE | 2019-08-27 19:40 | PCM.PN.BLA ---
Progress Note S: Feeling well with slight headache still 08/05 O: BP 137/93 at 1835 BP 155/86 at 1735 A: Magnesium IV stopped 1400 BP started to be 150s/90s. Procardia XL30mg BP has decreased since oral Procardia XL30mg P: Called Dr. Zuniga with decrease in BP since oral Procardia Patient wishes to go home on medication and do BP checks. Patient updated that Dr. Zuniga is assuming care and will review full chart. After chart review will determine POC. STROKE Vital Signs/Narrative: Vital Signs Pulse Resp BP 08/27/19 18:35 114 H 18 137/93 H 08/27/19 17:32 104 H 20 H 150/92 H 08/27/19 16:35 110 H 18 136/90 H
--- NOTE | 2019-08-27 20:55 | PCM.PN.BLA ---
Progress Note Vitals reviewed through recent hospitalization. BPs mildly improved from prior. Will d/c Labetalol and transition to higher dose Nifedipine. Second dose Nifedipine XL 30mg ordered for total of 60mg today. Will continue to monitor overnight. Consider d/c home in am. STROKE Vital Signs/Narrative: Vital Signs Temp Pulse Resp BP 08/27/19 20:38 99.2 F H 114 H 16 151/99 H 08/27/19 18:35 114 H 18 137/93 H 08/27/19 17:32 104 H 20 H 150/92 H
--- NOTE | 2019-08-27 21:32 | PCM.PN.BLA ---
Progress Note PROGRESS NOTE Patient c/o persistent headache 5/10 at forehead. Has not resolved despite magnesium, tylenol po. Denies vision changes, shortness of breath, chest pain, photophobia, phonophobia, wheezing. +congestion and cough. Reports abdominal cramping. Her milk is coming in, but she is not . BP 160/99 VSS GEN - NAD, AAO x 3 HEENT - atraumatic, normocephalic, anicteric, no frontal or maxillary sinus tenderness to palpation CV RRR PULM - CTAB ABD - soft, NT/ND EXT - no pitting edema NEURO - trace b/l LE and UE DTRs, no clonus A/P: 28yo PPD# 4 s/p , readmitted with persistent headache and elevated BPs c/w cHTN and superimposed preeclampsia. -Fiorecet for headache -s/p magnesium, Monitor BPs closely -transitioned to Nifedipine XL 60mg -Patient and mother given opportunity to ask questions and questions answered to their satisfaction. STROKE Vital Signs/Narrative: Vital Signs Temp Pulse Resp BP 08/27/19 20:38 99.2 F H 114 H 16 151/99 H 08/27/19 18:35 114 H 18 137/93 H
[2019-08-27] MEDS: Acetaminophen/Butalbital/Caffe 1 Tablet 2 TABLET PO (22:10)
[2019-08-28] VITALS: BP 123/70; PULSE 110; RESP 16; TEMP 37.2
[2019-08-28 03:39] VITALS: BP 120/73; PULSE 85
[2019-08-28 03:40] VITALS: BP 120/73; PULSE 85; RESP 16; TEMP 37.4
--- NOTE | 2019-08-28 06:11 | PN.OBGYN_ITS ---
Patient Problems: Active and Suspected Problems hypertension (Acute) Subjective: Headache resolved. Denies vision changes, shortness of breath, chest pain, abdominal pain. Objective: AVSS - Physical Exam Vitals/I&O's: Vital Signs Temp Pulse Resp BP Pulse Ox 99.3 F H 85 16 120/73 99 08/28/19 03:40 08/28/19 03:40 08/28/19 03:40 08/28/19 03:40 08/27/19 13:30 Oxygen Delivery Method Room Air Weight: 122.1 kg Body Mass Index (BMI) 43.4 Intake and Output for Last 24 Hours 08/26/19 08/27/19 08/28/19 23:59 23:59 23:59 Intake Total 55 / 55 2170.84 / 2170.84 Output Total 6300 / 6300 Balance 55 / 55 -4129.16 / -4129.16 General: Alert, Oriented x3, Cooperative, No apparent distress HEENT: Atraumatic, Normocephalic Lungs: Clear to auscultation, Normal air movement Cardiovascular: Regular rate, Regular Rhythm, Normal S1, Normal S2 Abdomen: Soft, Non Tender, Non-Distended, - - Fundus firm and nontender Extremities: No edema, No Calf Tenderness Neurological: Neuro grossly intact, - - no clonus, trace b/l LE DTRs Psych/Mental Status: Normal Affect, Appropriate, Alert and oriented to time, place, person, mood and affect Comment: Breast full, but not engorged and without redness Current Medications Acetaminophen (Tylenol) 1,000 mg PO Q8H PRN PRN PRN Reason: HEADACHE Last Admin: 08/27/19 12:06 Dose: 1,000 mg Documented by: Fluticasone Propionate (Flonase Nasal [place]) 2 spray NASAL DAILY [facility] Last Admin: 08/27/19 08:34 Dose: 2 spray Documented by: Hydralazine HCl (Apresoline Iv) 10 mg IV X1 PRN PRN Reason: Elevated BP Labetalol HCl (Trandate) 40 mg IV X1 PRN PRN Reason: Elevated BP Labetalol HCl (Trandate) 80 mg IV X1 PRN PRN Reason: Elevated BP Labetalol HCl (Trandate) 20 mg IV X1 PRN PRN Reason: Elevated BP Labetalol HCl (Trandate) 100 mg PO BID [facility] Last Admin: 08/27/19 09:02 Dose: 100 mg Documented by: Labetalol HCl (Trandate) 20 mg IV Q10M PRN PRN PRN Reason: Elevated BP Sodium Chloride () 10 ml IV Q12H [facility] Last Admin: 08/27/19 14:47 Dose: 10 ml Documented by: Medical Necessity - Tobacco Use Smoking Status: Never smoker Assessment/Plan All Active Problems hypertension (Acute) 28yo PPD# 5 s/p with hx chronic hypertension with likely superimposed preeclampsia s/p magnesium IV. -Headache resolved -BPs well controlled with Nifedipine XL 60mg, will continue -No evidence of worsening preeclampsia -Plan for dc home this am Code Visit OBSV E&M: 85154 Subsequent observation care L2
--- NOTE | 2019-08-28 06:24 | PCM.DC.SUM ---
Discharge Date and Diagnosis - Problem List Patient Problems: Active and Suspected Problems hypertension (Acute) Date of Admission: 08/26/19 Date of Discharge: 08/28/19 - Primary Discharge Diagnosis Active and Suspected Problems hypertension (Acute) Hospital Course and Treatment Operations: None Procedures: None Summary of Care Provided: The patient is a 28 year old F 3 para 3 with hx chronic hypertension who presented on day # 4 s/p with c/o persistent headache and elevated blood pressures. She was admitted for IV magnesium. Her BPs were controlled with Nifedipine following magnesium therapy and her headache resolved with Fioricet. She was discharged to home on day #6. Patient Problems: Active and Suspected Problems hypertension (Acute) - Physical Exam Vitals/I&O's: Vital Signs Temp Pulse Resp BP Pulse Ox 99.3 F H 85 16 120/73 99 08/28/19 03:40 08/28/19 03:40 08/28/19 03:40 08/28/19 03:40 08/27/19 13:30 Oxygen Delivery Method Room Air Weight: 122.1 kg Body Mass Index (BMI) 43.4 Intake and Output for Last 24 Hours 08/26/19 08/27/19 08/28/19 23:59 23:59 23:59 Intake Total 55 / 55 2170.84 / 2170.84 Output Total 6300 / 6300 Balance 55 / 55 -4129.16 / -4129.16 Current Medications Acetaminophen (Tylenol) 1,000 mg PO Q8H PRN PRN PRN Reason: HEADACHE Last Admin: 08/27/19 12:06 Dose: 1,000 mg Documented by: Fluticasone Propionate (Flonase Nasal [place]) 2 spray NASAL DAILY [facility] Last Admin: 08/27/19 08:34 Dose: 2 spray Documented by: Hydralazine HCl (Apresoline Iv) 10 mg IV X1 PRN PRN Reason: Elevated BP Labetalol HCl (Trandate) 40 mg IV X1 PRN PRN Reason: Elevated BP Labetalol HCl (Trandate) 80 mg IV X1 PRN PRN Reason: Elevated BP Labetalol HCl (Trandate) 20 mg IV X1 PRN PRN Reason: Elevated BP Labetalol HCl (Trandate) 100 mg PO BID [facility] Last Admin: 08/27/19 09:02 Dose: 100 mg Documented by: Labetalol HCl (Trandate) 20 mg IV Q10M PRN PRN PRN Reason: Elevated BP Sodium Chloride () 10 ml IV Q12H [facility] Last Admin: 08/27/19 14:47 Dose: 10 ml Documented by: Discharge Diet: No Restrictions Discharge Activity: Return to Normal Activity, May Shower, May Take a Tub Bath Call your doctor if you observe: Shortness of breath, Chest pain, - - Persistent, severe headache Home Medications: Medications to take at Discharge Valacyclovir HCl [Valtrex] 1,000 mg PO DAILY 06/14/16 Acetaminophen/Butalbital/Caffe [Fioricet] 2 tab PO BID PRN PRN #20 tab 08/28/19 Fluticasone 0.05% [Flonase Nasal [place]] 2 spray NASAL DAILY nasal.sry 08/28/19 Nifedipine [Nifedipine ER] 60 mg PO DAILY #30 tab.er.24 08/28/19 Following Prescrptions Were Given to Patient: Acetaminophen/Butalbital/Caffe [Fioricet] 2 tab PO BID PRN PRN #20 tab PRN Reason: severe headache Prescription Printed Nifedipine [Nifedipine ER] 60 mg PO DAILY #30 tab.er.24 Prescription Printed Please Follow Up With: Angelita Zuniga MD - BP check When: 5-7 days Patient Instructions: Controlling High Blood Pressure, Eating a Low-Salt Diet Disposition: Home Patient Condition:: Good Medical Necessity - Tobacco Use Smoking Status: Never smoker Meaningful Use Info Meaningful Use Diagnoses (Choose all that apply): None applicable
[2019-08-28 06:29] VITALS: BP 137/88; PULSE 88; RESP 16; TEMP 36.8
--- NOTE | 2019-08-28 06:31 | PCM.DC ---
- Discharge Diagnoses Current Active Problems: Current Active and Chronic Problems hypertension (Acute) Reason(s) for Visit for Discharge Instructions: Chronic hypertension. Preeclampsia You will use the following diet at home:: No restrictions Your food should be the consistency of: Regular Discharge Activity: Return to Normal Activity, May Shower, May Take a Tub Bath Call your doctor if you observe: Shortness of breath, Chest pain, - - Persistent, severe headache Instructions: Controlling High Blood Pressure, Eating a Low-Salt Diet Allergies/Adverse Reactions: Allergies tetracycline Allergy (Mild, Verified 08/26/19 21:36) Rash Medications to take at Discharge Valacyclovir HCl [Valtrex] 1,000 mg PO DAILY 06/14/16 Acetaminophen/Butalbital/Caffe [Fioricet] 2 tab PO BID PRN PRN #20 tab 08/28/19 Fluticasone 0.05% [Flonase Nasal [place]] 2 spray NASAL DAILY nasal.sry 08/28/19 Nifedipine [Nifedipine ER] 60 mg PO DAILY #30 tab.er.24 08/28/19 The following prescriptions were given: Acetaminophen/Butalbital/Caffe [Fioricet] 2 tab PO BID PRN PRN #20 tab PRN Reason: severe headache Prescription Printed Nifedipine [Nifedipine ER] 60 mg PO DAILY #30 tab.er.24 Prescription Printed Test Results: Test results from this visit will be discussed in further detail at your follow-up appointment, if applicable. Please Follow Up With: Angelita Zuniga MD - BP check When: 5-7 days
[2019-08-28 06:38] VITALS: BP 137/88; PULSE 88
== END 2019-08-28 07:00 | disposition home or self-care (01) | DRG 776 ==
LOC: WPOUT 21:28 → WP 21:29 → WPOUT 23:57 → WP 23:57
PROVIDERS: Admitting Provider Obstetrics & Gynecology; Referring Provider Obstetrics & Gynecology; Visit Provider Obstetrics & Gynecology
DX: O11.5 Pre-existing hypertension with pre-eclampsia, complicating the puerperium (principal)
CPT/HCPCS: 36415; 82565; 82570; 84156; 84450; 84460; 84550; 85027; 85610; 85730; J7120; A4216

== ENCOUNTER → 2019-11-01 09:46 | Outpatient (CLI) | payer OTHER, SELFPAY ==
[2019-08-26 21:36] VITALS: BMI 43.4
--- NOTE | 2019-11-01 16:16 | STRESSREP ---
Stress Test Report Exercise stress test. 28-year-old lady with a history of chest pain and recent preeclampsia. Stress protocol: Resting EKG demonstrates normal sinus rhythm with a rate of 77 bpm and a short MT interval. Resting blood pressure is 132/92 mmHg. The patient exercised according to the regular Jasvir protocol for a total duration of 3 minutes and 12 seconds. The maximum heart rate attained was 157 bpm which was 81% of maximum predicted heart rate. The maximum workload was 4.8 metabolic equivalents. The test was terminated prematurely due to markedly elevated heart rate. The resting blood pressure was 132/92 with a peak blood pressure 168/90 mmHg. Nonspecific EKG changes were noted with no evidence of ischemia present. No clinical angina was noted. No arrhythmias were noted. Conclusion: Exercise stress test with no EKG criteria for ischemia. Inappropriate tachycardia noted. Would recommend investigation of an underlying cause for inappropriate sinus tachycardia prior to performing any further stress testing.
== END ==
PROVIDERS: PCP Student in an Organized Health Care Education/Training Program; Referring Provider Student in an Organized Health Care Education/Training Program; Visit Provider Student in an Organized Health Care Education/Training Program
DX: R07.9 Chest pain, unspecified (principal); I10 Essential (primary) hypertension; Z68.36 Body mass index [BMI] 36.0-36.9, adult
CPT/HCPCS: 93017

== ENCOUNTER 2019-11-03 02:37 | Emergency (ER) | payer OTHER, SELFPAY ==
[2019-08-26 21:36] VITALS: BMI 43.4
[2019-11-03 02:37] VITALS: BP 137/90; PULSE 114; RESP 19; TEMP 36.8; O2SAT 97; BMI 38.7
--- NOTE | 2019-11-03 02:46 | EKG12_ITS ---
Test Reason : CP Blood Pressure : / mmHG Vent. Rate : 115 BPM Atrial Rate : 115 BPM P-R Int : 120 ms QRS Dur : 084 ms QT Int : 318 ms P-R-T Axes : 036 009 -72 degrees QTc Int : 439 ms Sinus tachycardia Minimal voltage criteria for LVH, may be normal variant T wave abnormality, consider inferior ischemia Abnormal ECG Confirmed by MATTHEW BROWNE, ELIZ ([id number]), multimedia editor PRUDENCE CHATTERJEE ([id number]) on 11/04/2019 3:18:58 PM Referred By: BB Confirmed By:ELIZ CASTRO MD
--- NOTE | 2019-11-03 02:48 | ED.VIS.GEN ---
History of Present Illness Chief Complaint: Chest Pain Detail of Chief Complaint: chest pain, palpitations Informant: Patient Onset: Today - JPTA Timing: Intermittent, Lasts - 20-30 mins Location: substernal Current Severity: - - gone Maximum Severity: Moderate Worsened by: nothing Relieved by: nothing in particular Associated Symptoms: racing HB, lightheaded. no syncope. Narrative: Patient has been having intermittent chest discomfort for several weeks. She has seen her PCP, and had an EKG done at an outside hospital, as well as a stress test that was done yesterday and reportedly unremarkable. She is scheduled for an echocardiogram after the weekend. Tonight she was sitting at a bonfire, and she suddenly felt the discomfort returned but with racing heartbeat and lightheadedness, this is the first time she had the palpitations and lightheadedness. All the symptoms resolved spontaneously. She denies any stimulants tonight or illicit substances, she does not smoke. She recently had a baby 10 weeks ago. She denies any leg pain or swelling. No abdominal pain, nausea, vomiting, diarrhea, bleeding. She denies any shortness of breath or diaphoresis. She did not pass out. She has not yet been referred to cardiology. - Past Medical History (1) Migraines Status: Chronic (2) hypertension Status: Chronic Past Medical History - Allergies and Home Meds Allergies/Adverse Reactions: Allergies tetracycline Allergy (Mild, Verified 11/03/19 02:41) Rash Primary Care Physician: Naren Alves DO [Primary Care Provider] - Lives: With Family Smoking Status: Never smoker Alcohol: None Drugs: None Review of Systems General: Denies: Chills, Fever, Sweats Eyes: Denies: Visual changes - bilaterally, Diplopia ENT: Denies: Bilateral ear pain, Rhinorrhea, Sore throat Cardiovascular: Reports: Chest pain, Palpitations, Heart racing Respiratory: Denies: Dyspnea, Cough, Dyspnea on exertion Gastrointestinal: Denies: Abdominal pain, Nausea, Vomiting, Diarrhea, Melena, Hematochezia Genitourinary: Denies: Dysuria, Hematuria, Frequency Musculoskeletal: Denies: Back pain, Swelling, Extremity Pain Skin: Denies: Rash, Wounds Neurological: Denies: Headache, Weakness, Numbness Physical Exam Vital Signs/Narrative: Vital Signs Temp Pulse Resp BP Pulse Ox 11/03/19 02:37 98.3 F 114 H 19 H 137/90 H 97 Inital Vital Signs reviewed: Yes General: Well nourished, Well developed, Obese, No Acute Distress Head: Normocephalic, Atraumatic Eyes: Perrl, EOMI ENT: Moist mucous membranes, No rhinorrhea Neck: Supple, Nontender, No JVD Cardiovascular: Regular rate, Regular rhythm, No murmurs, Tachycardia Respiratory: No distress, CTA bilaterally, Chest nontender Abdomen: Soft, Nontender, Nondistended, Normal bowel sounds Back: Nontender, Normal Inspection Extremities: Nontender, No edema. Negative for: Calf Tenderness Skin: Normal color, No rash, No Trauma Neurological: Alert, Oriented x3, Cranial nerves II-XII grossly intact, Normal Strength, Normal Sensation, Normal Gait Psychological: Normal affect, Normal Mood Diagnostic/Tx/Re-eval Laboratory Results 11/03/19 11/03/19 11/03/19 02:45 02:45 02:45 WBC 12.8 H RBC 4.60 Hgb 13.6 Hct 42.6 MCV 92.6 MCH 29.6 MCHC 31.9 L RDW Std Deviation 45.7 H RDW Coeff of Olvin 13.7 Plt Count 278 MPV 11.3 Immature Gran % (Auto) 0.400 Neut % (Auto) 73.1 H Lymph % (Auto) 16.0 L [place] % (Auto) 7.6 Eos % (Auto) 2.4 Baso % (Auto) 0.5 Absolute Neuts (auto) 9.4 H Absolute Lymphs (auto) 2.05 Nucleated RBC % 0 D-Dimer Quant (PE/DVT) 0.39 Sodium 138 Potassium 3.4 L Chloride 106 Carbon Dioxide 22.0 Anion Gap 10 BUN 16 Creatinine 0.86 Estim Creat Clear Calc 95.55 Est GFR (MDRD) Af Amer 101 Est GFR (MDRD) Non-Af 84 BUN/Creatinine Ratio 18.6 Glucose 139 H Calcium 8.6 Total Bilirubin 0.10 L AST 29 ALT 37 Alkaline Phosphatase 91 Troponin I < 0.015 Total Protein 8.0 Albumin 4.1 Globulin 3.9 Albumin/Globulin Ratio 1.1 - Rhythm Strip Rhythm Strip: Sinus Tach Rate: 115 Ectopy: None - EKG Initial EKG Interpretation: No Acute Injury Pattern, Sinus Tachycardia, S-T Depression - Less than 1 mm laterally without reciprocal changes, Non-Specific ST Changes - Inferolaterally w/ inversions. No ST segment elevations. Prior: No Prior Follow-up EKG Interpretation: Sinus Rhythm - 81, No Acute Injury Pattern, Non-Specific ST Changes - flattening; inversions resolved; ST depressions resolved. - Medical Decision Making Patient was monitored in the ER for about an hour, she had no recurrent symptoms or dysrhythmias or ectopy. She felt fine. Her heart rate was initially elevated and gradually came down to the 80s. I repeated her EKG, the initial EKG abnormalities resolved. Given that she has had a negative stress test I do not think she needs to be admitted to the hospital for this. My suspicion is that she had a tachydysrhythmia, some type of supraventricular tachycardia, that resolved and we were seeing the after effects, and cardiac recovery. Given her recent baby delivery, I also ran a liver enzymes and a d-dimer, in addition to the troponin another basic labs. Everything returned unremarkable with the exception of the potassium 3.4. There could be a number reasons for that in addition to low total body potassium, and unknown if it is related to the symptoms she had tonight or not. She was given 1 dose of potassium 40 mEq orally. At this time I feel she is stable to be discharged and follow-up with her PCP and cardiology as an outpatient. She is comfortable with that overall plan we discussed reasons to return. ED Disposition - Plan for ED Patient: Disposition: Home or Assisted Living Diagnosis: Palpitations, Hypokalemia Instructions: ED Palpitations, ED Potassium Deficiency Referrals: Naren Alves DO [Primary Care Provider] - 3-5 Days Rogelio Shannon MD [STAFF PHYSICIAN] -
[2019-11-03 03:07] LABS: D-Dimer Quantitative (DVT/PE) 0.39 FEU/ug/m (0.27-0.49)
[2019-11-03 03:12] LABS: Absolute Lymphocyte Count 2.05 X10^3/uL (0.83-4.51); Absolute Neutrophil Count 9.4 X10^3/uL (2.0-7.7); Basophil# 0.07 X10^3/uL; Basophil% 0.5 % (0-1); Eosinophil# 0.31 X10^3/uL; Eosinophils% 2.4 % (0-5); Hematocrit 42.6 % (37-47); Hemoglobin 13.6 g/dL (12.0-15.0); Lymphocyte # 2.05 X10^3/ul (4.0); Mean Corp Hgb Conc 31.9 g/dL (32-36); Mean Corpuscular Hgb 29.6 pg (27.0-32.0); Mean Corpuscular Volume 92.6 fL (81-99); Mean Platelet Vol. 11.3 fl (6.2-12.0); Monocyte# 0.97 X10^3/uL; Monocyte% 7.6 % (0-10); NRBC Flagged by Analyzer 0 % (0-5); Neutrophil # 9.39 X10^3/uL (2.7-7.7); Neutrophil % 73.1 % (47-70); Platelet Count 278 K/mm3 (150-450); RBC Distribution Width CV 13.7 % (11.6-14.6); RBC Distribution Width SD 45.7 fl (35.1-43.9); White Blood Count 12.8 K/mm3 (4.4-11.0)
[2019-11-03 03:17] LABS: ALB/GLOB Ratio 1.1 RATIO (0.9-2.4); AST(SGOT) 29 U/L (15-37); Alanine Aminotransfer ALT/SGPT 37 U/L (13-56); Albumin, Serum 4.1 g/dL (3.2-5.0); Alkaline Phosphatase 91 U/L (45-117); Anion Gap 10 (5-15); BUN 16 mg/dL (7-18); BUN/Creat Ratio 18.6 RATIO (10-20); Calcium,Total 8.6 mg/dL (8.5-10.1); Chloride 106 mmol/L (98-107); Creatinine, Serum 0.86 mg/dL (0.55-1.02); EST Glomerular Filtration Rate 84 mL/min (>60); Est Glom Filt Rate - Afr Amer 101 mL/min (>60); Estimated Creatinine Clearance 95.55 ml/min; Globulin 3.9 g/dL (2.2-4.2); Glucose 139 mg/dL (74-106); Potassium 3.4 mmol/L (3.5-5.1); Sodium Level 138 mmol/L (136-145)
--- NOTE | 2019-11-03 03:24 | EKG12_ITS ---
Test Reason : REPEAT EKG Blood Pressure : / mmHG Vent. Rate : 081 BPM Atrial Rate : 081 BPM P-R Int : 112 ms QRS Dur : 090 ms QT Int : 368 ms P-R-T Axes : 025 006 050 degrees QTc Int : 427 ms Normal sinus rhythm Moderate voltage criteria for LVH, may be normal variant Nonspecific T wave abnormality Abnormal ECG Confirmed by MATTHEW BROWNE, ELIZ ([id number]), editor publications PRUDENCE CHATTERJEE ([id number]) on 11/04/2019 3:19:08 PM Referred By: BB Confirmed By:ELIZ CASTRO MD
[2019-11-03 03:42] VITALS: BP 132/79; PULSE 95; RESP 16; O2SAT 96
== END 2019-11-03 03:43 | disposition home or self-care (01) ==
PROVIDERS: Emergency Provider Emergency Medicine; PCP Student in an Organized Health Care Education/Training Program
DX: R00.2 Palpitations (principal); E87.6 Hypokalemia; O16.5 Unspecified maternal hypertension, complicating the puerperium
CPT/HCPCS: 80053; 84484; 85025; 85379; 93005; 99284; J7030; A4216

== ENCOUNTER 2021-08-23 14:36 | Outpatient (CLI) | payer BC, SELFPAY ==
[2021-08-27 15:25] LABS: HPV Reflexed? NOT INDICATED
== END 2021-08-23 23:59 | disposition home or self-care (01) ==
LOC: LABSPEC 14:39
PROVIDERS: PCP Student in an Organized Health Care Education/Training Program; Visit Provider Student in an Organized Health Care Education/Training Program
DX: Z12.4 Encounter for screening for malignant neoplasm of cervix (principal)
CPT/HCPCS: 88175; G0145